=== PATIENT | male | born 1955 | race Caucasian/White ===

== ENCOUNTER 2021-02-22 18:41 | Emergency (ER) | payer OTHER, SELFPAY ==
--- NOTE | ~2021-02-22 | XR_ITS ---
EXAMINATION: XR HAND, RIGHT CLINICAL INFORMATION: Crush injury COMPARISON: 09/15/2016, 12/12/2012 and 11/20/2012 TECHNIQUE: PA, lateral, and oblique views of the right hand. FINDINGS: There is soft tissue swelling overlying the distal fourth phalanx along with multiple fractures of the distal phalanx. There are fractures at the base of the phalanx bilaterally along with a spiral fracture extending through the diaphysis. Fracture fragments are also seen at the terminal tuft. Mild degenerative changes are seen at the DIP joints and the first metacarpal phalangeal joint. Deformity of the head of the fourth metacarpal secondary to old fracture, seen acutely on the 12/12/2012 study. XR/XR hand RT 2V IMPRESSION: Multiple fractures distal phalanx fourth digit secondary to crush injury. Mild baseline degenerative changes as described above.
--- NOTE | 2021-02-22 19:19 | ED.EXTPRO ---
HPI - Extremity Problem General Chief complaint: Wound/Laceration Stated complaint: lac Source: patient Mode of arrival: ambulatory Limitations: no limitations History of Present Illness HPI Narrative: 65-year-old male presents with a 57140 lb per pressure [place] crush injury to the right hand, has injuries to the 5th for and 3rd fingers, with avulsion and laceration to the back 4th tip of finger. Unsure when last Tdap vaccine was updated MD Complaint: extremity pain Onset (ago): hour(s) (Within the hour of arrival) Pain Consistency: constant Location: right Severity scale (1-10): 10 Quality: aching and constant Relieving factors: nothing Exacerbating factors: range of motion and palpation Associated symptoms: denies other symptoms Related Data Previous Rx's Medication Instructions Recorded amoxicillin-pot clavulanate 1 tab PO Q12H 10 Days #20 tab 02/22/21 [Augmentin] ibuprofen 600 mg PO Q6H PRN #60 tab 02/22/21 oxycodone 5 mg PO Q8H PRN #10 tab 02/22/21 Allergies Allergy/AdvReac Type Severity Reaction Status Date / Time No Known Allergies Allergy Verified 02/22/21 19:24 Review of Systems Review of Systems: Constitutional: No Fever, No Chills ENT/Mouth: No Ear Pain, No Hoarseness, No sore throat Eyes: No Eye Pain, No Swelling, No Redness, No Foreign Body Cardiovascular: No Chest Pain, No SOB Respiratory: No Cough, No Dyspnea Gastrointestinal: No Nausea, No Vomiting, No Diarrhea, No abdominal Pain Genitourinary: No Dysuria, No Hematuria Musculoskeletal: positive 3rd 4th 5th finger and right hand pain, No Myalgias, No Joint Swelling Skin: Positive Skin lacerations to 3rd 4th and 5th fingers of the right hand, No rash Neuro: No Weakness, No Numbness, No Paresthesias, No Loss of Consciousness, No Dizziness, No Headache Psych: No Anxiety/Panic, No Depression Heme/Lymph: no easy bruising, no Lymphadenopathy Endocrine: No Polyuria, No Polydipsia Yes all other systems are reviewed and are negative [facility] Past Medical History Attestation statement: The following information was validated with the patient. Source: old records reviewed Social History Social History Advance Directives: No Advance Directives Information Provided: Yes Physical Exam Vital Signs: Vital Signs: Last Vital Signs Temp 97.9 F 02/22/21 19:35 Pulse 75 02/22/21 19:35 Resp 16 02/22/21 19:35 BP 111/70 02/22/21 19:35 Pulse Ox 96 02/22/21 19:35 Body Mass Index 28.8 Appearance: Alert. Oriented X3. Moderate distress. Eyes: Pupils equal, round and reactive to light. ENT: Pharynx normal. Neck: Normal inspection. Neck supple. CVS: Normal heart rate and rhythm. Pulses normal. Respiratory: No respiratory distress. Breath sounds normal. Abdomen: Soft and nontender. Skin: Avulsion laceration to the tip of 4th finger Skin warm and dry. Normal skin color. Normal skin turgor. Extremities: Full range of motion to all extremities, brisk capillary refill equal pulses to all extremities. No tendon deficit noted Neuro: No motor deficit. No sensory deficit. Course Course Course Narrative: 65-year-old male presents with crush injury to the right hand with significant injury to the 4th finger, minor injury 3rd and 5th fingers. Plan is to update Tdap vaccine, digital blocks, and x-rays. X-ray show nondisplaced fractures to the tip of the 4th finger. Please refer to procedure note for full details. Prepped and draped in sterile fashion. Avulsion laceration repaired with 4 sutures around the tip of the finger. Two through the fingernail. Patient tolerated procedure well. Patient verbalized understanding of wound care instructions and knows to monitor for signs and symptoms of infection. Will be giving Augmentin for infection prophylaxis. Tdap updated today. Patient verbalized understanding of and agrees to plan of care discharge home. Procedures Laceration Laceration 1: Site: hand Side (If applicable): right Size (cm): 4 Description: irregular Depth: simple, single layer Local Anesthetic: lidocaine 2% Amount of anesthesia used (mL): 4 Pre-repair: wound explored, irrigated extensively, deep structures intact and wound margins revised Skin layer closed with: nylon Size (cm): 5-0 Number of sutures: 4 Technique: simple, interrupted MDM - Extremity (Nontraumatic) MDM Narrative Medical decision making narrative: Crush injury, fracture, laceration Medical Records Attestation: I reviewed the patient's medical records. Imaging Data Right hand and finger x-rays: Attestation: I personally reviewed and interpreted this imaging study as follows: Radiologist's impression: EXAMINATION: XR HAND, RIGHT CLINICAL INFORMATION: Crush injury COMPARISON: 09/15/2016, 12/12/2012 and 11/20/2012 TECHNIQUE: PA, lateral, and oblique views of the right hand. FINDINGS: There is soft tissue swelling overlying the distal fourth phalanx along with multiple fractures of the distal phalanx. There are fractures at the base of the phalanx bilaterally along with a spiral fracture extending through the diaphysis. Fracture fragments are also seen at the terminal tuft. Mild degenerative changes are seen at the DIP joints and the first metacarpal phalangeal joint. Deformity of the head of the fourth metacarpal secondary to old fracture, seen acutely on the 12/12/2012 study. XR/XR hand RT 2V IMPRESSION: Multiple fractures distal phalanx fourth digit secondary to crush injury. Mild baseline degenerative changes as described above. Discharge Plan Discharge Clinical Impression: Laceration, Crush accident, Finger fracture Patient Disposition: Home, Self-Care Instructions: Finger Fracture (ED), Finger Laceration (ED), Crush Injury (ED) Additional Instructions: You were evaluated for a crush injury to the right 3rd 4th and 5th fingers. We put 4 sutures in the tip of your 4th finger, and the tip of your 4th finger is fractured in multiple places. Please keep dressing in place for 2 days, you may keep replace dressing for comfort. Please take the fingers together and use the splint to help prevent further injury I prescribed Motrin and oxycodone for pain management. Oxycodone is a narcotic and has high risk for addiction and abuse. Do not drive or operate machinery while taking this medication. This medication will also cause drowsiness, increased risk for falls, and constipation. Drink plenty of fluids, use MiraLax and Colace as needed to help with stool softening. I prescribed Augmentin for 10 days. Please take this medication in his entirety. This is an antibiotic. You were crushed with dirty palates, this is to prevent infection. Thank you for choosing this emergency department for evaluation. Please follow-up with primary care physician as needed. Return to the emergency department for any new, concerning, or worsening symptoms. Prescriptions: New oxycodone 5 mg tablet 5 mg PO Q8H PRN (Reason: pain) Qty: 10 RF: 0 ibuprofen 600 mg tablet 600 mg PO Q6H PRN (Reason: pain) Qty: 60 RF: 0 amoxicillin-pot clavulanate [Augmentin] 875-125 mg tablet 1 tab PO Q12H 10 Days Qty: 20 RF: 0 Interventions: ED Discharge Assessment Last Done: 02/22/21 21:08 Discharge Date/Time: 02/22/21 21:10
[2021-02-22] MEDS: diphenhydrAMINE HCL 25 MG TABLET 50 MG PO (19:32)
[2021-02-22 19:35] VITALS: BP 111/70; PULSE 75; RESP 16; TEMP 36.6; O2SAT 96; BMI 28.8
[2021-02-22] MEDS: Lidocaine HCl 2 % MPF 5 ML VIAL 15 ML SUBCUT (20:54)
[2021-02-22] MEDS: Amoxicillin/Potassium Clav 875 MG TABLET PO (20:55)
[2021-02-22] MEDS: Ibuprofen 600 MG TABLET PO (20:55)
[2021-02-22] MEDS: oxyCODONE HCl Immed Release 5 MG TABLET 10 MG PO (20:55)
[2021-02-22] MEDS: Diphth,Pertus(ACell),Tet Adult 0.5 ML SYRINGE IM (20:56)
== END 2021-02-22 21:10 | disposition home or self-care (01) ==
PROVIDERS: Emergency Provider Emergency Medicine Emergency Medical Services; PCP Internal Medicine
DX: S61.212A Laceration without foreign body of right middle finger without damage to nail, initial encounter (principal); S61.214A Laceration without foreign body of right ring finger without damage to nail, initial encounter; S61.216A Laceration without foreign body of right little finger without damage to nail, initial encounter; M79.641 Pain in right hand; Y29.XXXA Contact with blunt object, undetermined intent, initial encounter; Y93.9 Activity, unspecified; Y92.9 Unspecified place or not applicable; Y99.9 Unspecified external cause status; Z79.899 Other long term (current) drug therapy
CPT/HCPCS: 12002; 73120; 90471; 90715; 96372; 99284; Q0163